=== PATIENT | male | born 1985 | race Caucasian/White ===

== ENCOUNTER 2020-10-26 18:34 | Emergency (ER) | payer OTHER ==
[~2020-10-26] VITALS: Wt 152.9 kg
== END 2020-10-26 21:25 | disposition home or self-care (01) ==
LOC: ED 18:34
DX: S20.212A Contusion of left front wall of thorax, initial encounter (principal); S30.1XXA Contusion of abdominal wall, initial encounter; S00.93XA Contusion of unspecified part of head, initial encounter; F32.9 Major depressive disorder, single episode, unspecified; V89.2XXA Person injured in unspecified motor-vehicle accident, traffic, initial encounter; Y93.89 Activity, other specified; Y92.89 Other specified places as the place of occurrence of the external cause; Y99.8 Other external cause status

== ENCOUNTER 2022-06-30 11:59 | Emergency (ER) | payer OTHER | END 2022-06-30 15:40 | disposition left against medical advice (07) | LOC: ED 11:59 | DX: Z53.21 Procedure and treatment not carried out due to patient leaving prior to being seen by health care provider (principal) ==